=== PATIENT | male | born 1970 | race Caucasian/White ===

== ENCOUNTER 2022-08-18 20:59 | Emergency (ER) | payer SELFPAY ==
[~2022-08-18] VITALS: Ht 185.4 cm; Wt 84.8 kg
== END 2022-08-18 22:16 | disposition home or self-care (01) ==
LOC: ED 20:59
DX: S61.211A Laceration without foreign body of left index finger without damage to nail, initial encounter (principal); W26.9XXA Contact with unspecified sharp object(s), initial encounter; Y93.89 Activity, other specified; Y92.89 Other specified places as the place of occurrence of the external cause; Y99.8 Other external cause status